=== PATIENT | female | born 1935 | race Caucasian/White ===

== ENCOUNTER 2018-03-02 15:34 | Emergency (ER) | payer MEDICARE, OTHER ==
[2018-03-02] MEDS: KETOROLAC 30 MG INJ IV (16:39)
[2018-03-02 16:56] LABS: ADD MAN DIFF? NO
[2018-03-02 16:59] LABS: WHITE BLOOD COUNT 11.6 10^3/ul (4.8-10.8)
[2018-03-02 16:59] LABS: BASOPHILS % 0.3 % (0.0-2.0); EOSINOPHILS # 0.1 10^3/ul (0.0-0.5); EOSINOPHILS % 0.5 % (0.0-7.0); HEMATOCRIT 39.4 % (37.0-47.0); HEMOGLOBIN 12.8 g/dl (12.0-16.0); LYMPHOCYTES # 2.5 10^3/ul (0.8-2.9); MEAN CORPUSCULAR HEMOGLOBIN 28.6 pg (29.0-33.0); MEAN CORPUSCULAR HGB CONC 32.5 g/dl (32.0-37.0); MEAN CORPUSCULAR VOLUME 87.9 fl (82.0-101.0); MONOCYTE # 0.9 10^3/ul (0.3-0.9); MONOCYTES % 7.8 % (0.0-11.0); PLATELET COUNT 273 10^3/UL (140-415); RED BLOOD COUNT 4.48 10^6/ul (4.20-5.40); RED CELL DISTRIBUTION WIDTH 13.2 % (11.5-14.5)
[2018-03-02 17:18] LABS: ANION GAP 11 (5-13); BLOOD UREA NITROGEN 16 mg/dl (7-20); CALCIUM 8.6 mg/dl (8.4-10.2); CARBON DIOXIDE 25 mmol/L (21-31); CHLORIDE 98 mmol/L (97-110); CREATININE 0.61 mg/dl (0.44-1.00); GLUCOSE 124 mg/dl (70-220); INR 0.92; PARTIAL THROMBOPLASTIN TIME 30.5 Sec (23.0-35.0); POTASSIUM 4.3 mmol/L (3.5-5.1); PROTIME 12.4 Sec (11.9-14.9); SODIUM 134 mmol/L (135-144)
[2018-03-02] MEDS: HYDROCODONE/APAP (5/325) TAB PO (17:39)
[2018-03-02] MEDS: ONDANSETRON (ODT) 4 MG TAB ODT (17:40)
[2018-03-02 18:12] LABS: ERYTHROCYTE SEDIMENTATION RATE 9 mm/Hr (0-30)
== END 2018-03-02 20:04 | disposition home or self-care (01) ==
LOC: E/R 15:34
DX: R51 Headache (principal); I10 Essential (primary) hypertension; E11.9 Type 2 diabetes mellitus without complications; Z79.84 Long term (current) use of oral hypoglycemic drugs
CPT/HCPCS: 36415; 70450; 80048; 85025; 85610; 85651; 85730; 96374; 99285-25

== ENCOUNTER 2018-03-08 15:58 | Observation (INO) | payer MEDICARE, OTHER ==
[2018-03-08 20:34] LABS: ADD MAN DIFF? NO
[2018-03-08 20:37] LABS: WHITE BLOOD COUNT 10.5 10^3/ul (4.8-10.8)
[2018-03-08 20:37] LABS: BASOPHILS % 0.3 % (0.0-2.0); EOSINOPHILS # 0.1 10^3/ul (0.0-0.5); HEMATOCRIT 39.7 % (37.0-47.0); HEMOGLOBIN 13.1 g/dl (12.0-16.0); LYMPHOCYTES # 3.2 10^3/ul (0.8-2.9); MEAN CORPUSCULAR HEMOGLOBIN 28.6 pg (29.0-33.0); MEAN CORPUSCULAR VOLUME 86.7 fl (82.0-101.0); MEAN PLATELET VOLUME 10.2 fl (7.4-10.4); MONOCYTE # 0.7 10^3/ul (0.3-0.9); MONOCYTES % 6.3 % (0.0-11.0); NEUTROPHIL # 6.5 10^3/ul (1.6-7.5); PLATELET COUNT 244 10^3/UL (140-415); RED BLOOD COUNT 4.58 10^6/ul (4.20-5.40); RED CELL DISTRIBUTION WIDTH 13.2 % (11.5-14.5)
[2018-03-08 20:58] LABS: ANION GAP 16 (5-13); BLOOD UREA NITROGEN 11 mg/dl (7-20); CALCIUM 9.2 mg/dl (8.4-10.2); CARBON DIOXIDE 24 mmol/L (21-31); CHLORIDE 97 mmol/L (97-110); CREATININE 0.57 mg/dl (0.44-1.00); GLUCOSE 182 mg/dl (70-220); POTASSIUM 4.4 mmol/L (3.5-5.1); SODIUM 137 mmol/L (135-144)
[2018-03-08 21:09] LABS: TROPONIN-I < 0.012 ng/ml (0.000-0.120)
[2018-03-08] MEDS ORDERED: NACL 0.9% 3 ML SYG IV (22:00)
[2018-03-08] MEDS ORDERED: ACETAMINOPHEN 325 MG TAB PO ×2 (22:00)
[2018-03-08] MEDS ORDERED: NITROGLYCERIN (SL) 0.4 MG TAB SL (22:00)
[2018-03-08] MEDS ORDERED: BISACODYL (EC) 5 MG TAB PO (22:00)
[2018-03-08] MEDS ORDERED: DOCUSATE SODIUM 100 MG CAP PO (22:00)
[2018-03-08] MEDS ORDERED: ONDANSETRON 4 MG INJ IV ×2 (22:00)
[2018-03-08] MEDS: ASPIRIN 325 MG TAB PO (22:02)
[2018-03-09] MEDS: ZOLPIDEM 5 MG TAB PO (00:43)
[2018-03-09 02:49] LABS: CREATINE KINASE 28 IU/L (23-200)
[2018-03-09 03:03] LABS: CK INDEX 2.5; CK-MB 0.71 ng/ml (0.0-2.4); TROPONIN-I < 0.012 ng/ml (0.000-0.120)
[2018-03-09] MEDS ORDERED: GLUCOSE GEL 15 GRAM TUBE PO ×2 (05:30)
[2018-03-09] MEDS ORDERED: GLUCAGON 1 MG INJ IM (05:30)
[2018-03-09] MEDS ORDERED: GLUCOSE GEL 15 GRAM TUBE BUCCAL (05:30)
[2018-03-09] MEDS ORDERED: DEXTROSE 50% 50 ML SYRINGE IV ×2 (05:30)
[2018-03-09] MEDS: INSULIN ASPART [NOVOLOG] 3 ML PEN SC ×3 (07:55→17:29)
[2018-03-09 08:19] LABS: ADD MAN DIFF? NO
[2018-03-09] MEDS: AMLODIPINE 10 MG TAB PO (08:21)
[2018-03-09 08:22] LABS: WHITE BLOOD COUNT 8.9 10^3/ul (4.8-10.8)
[2018-03-09 08:22] LABS: BASOPHILS % 0.2 % (0.0-2.0); EOSINOPHILS # 0.1 10^3/ul (0.0-0.5); EOSINOPHILS % 1.3 % (0.0-7.0); HEMATOCRIT 38.6 % (37.0-47.0); HEMOGLOBIN 12.5 g/dl (12.0-16.0); MEAN CORPUSCULAR HEMOGLOBIN 28.2 pg (29.0-33.0); MEAN CORPUSCULAR HGB CONC 32.4 g/dl (32.0-37.0); MEAN CORPUSCULAR VOLUME 87.1 fl (82.0-101.0); MEAN PLATELET VOLUME 10.2 fl (7.4-10.4); MONOCYTE # 0.7 10^3/ul (0.3-0.9); MONOCYTES % 7.7 % (0.0-11.0); NEUTROPHILS % 56.4 % (39.0-77.0); PLATELET COUNT 227 10^3/UL (140-415); RED BLOOD COUNT 4.43 10^6/ul (4.20-5.40); RED CELL DISTRIBUTION WIDTH 13.2 % (11.5-14.5)
[2018-03-09] MEDS: LOSARTAN 50 MG TAB PO (08:22)
[2018-03-09] MEDS: GABAPENTIN 300 MG CAP PO ×2 (08:22→13:26)
[2018-03-09] MEDS: ENOXAPARIN 40 MG/0.4 ML SYG SC (08:26)
[2018-03-09 08:46] LABS: HEMOGLOBIN A1C 6.3 % (0-5.9)
[2018-03-09 08:52] LABS: ALANINE AMINOTRANSFERASE 47 IU/L (13-69); ALBUMIN 3.9 g/dl (3.3-4.9); ALBUMIN/GLOBULIN RATIO 1.56; ALKALINE PHOSPHATASE 52 IU/L (42-121); ANION GAP 11 (5-13); ASPARTATE AMINO TRANSFERASE 25 IU/L (15-46); BILIRUBIN,INDIRECT 0.2 mg/dl (0-1.1); BILIRUBIN,TOTAL 0.2 mg/dl (0.2-1.3); BLOOD UREA NITROGEN 11 mg/dl (7-20); CALCIUM 9.2 mg/dl (8.4-10.2); CARBON DIOXIDE 25 mmol/L (21-31); CHLORIDE 102 mmol/L (97-110); CHOL/HDL RATIO 3.5 RATIO; CHOLESTEROL 138 mg/dl (100-200); CREATININE 0.54 mg/dl (0.44-1.00); GLUCOSE 53 mg/dl (70-220); HDL CHOLESTEROL 39 mg/dl (33-92); LDL CHOLESTEROL,CALCULATED 83 mg/dl; MAGNESIUM 1.6 mg/dl (1.7-2.5); POTASSIUM 4.6 mmol/L (3.5-5.1); SODIUM 138 mmol/L (135-144); TOTAL PROTEIN 6.4 g/dl (6.1-8.1); TRIGLYCERIDES 80 mg/dl (0-149)
[2018-03-09 08:54] LABS: CREATINE KINASE 23 IU/L (23-200)
[2018-03-09 08:58] LABS: CK INDEX 2.8; CK-MB 0.64 ng/ml (0.0-2.4); TROPONIN-I < 0.012 ng/ml (0.000-0.120)
[2018-03-10] MEDS ORDERED: ACCU-CHEK XX (02:00)
== END 2018-03-09 17:45 | disposition home or self-care (01) ==
LOC: E/R 15:58 → TEL 21:50
DX: R07.89 Other chest pain (principal); I16.0 Hypertensive urgency; I10 Essential (primary) hypertension; E11.9 Type 2 diabetes mellitus without complications; E78.5 Hyperlipidemia, unspecified
CPT/HCPCS: 36415; 71045; 80048; 80053; 80061; 82550; 82553; 82962; 83036; 83735; 84443; 84484; 85025; 87081; 93005; 93306; 99285-25; G0378

== ENCOUNTER → 2018-03-28 | Outpatient (CLI) | payer MEDICARE, OTHER ==
[~2018-03-28] MED LIST: IOHEXOL 100 ML; METOPROLOL 100 MG TAB; METOPROLOL 5 MG INJ; SOD CHLORIDE 0.9% 100 ML
== END | disposition home or self-care (01) ==
LOC: C/S 09:38
DX: I70.0 Atherosclerosis of aorta (principal); R07.9 Chest pain, unspecified
CPT/HCPCS: Q9967

== ENCOUNTER → 2018-04-13 | Outpatient (CLI) | payer MEDICARE, OTHER ==
[~2018-04-13] MED LIST changes: -METOPROLOL 100 MG TAB; -METOPROLOL 5 MG INJ
[2018-04-13] MEDS: METOPROLOL 100 MG TAB (13:40)
== END | disposition home or self-care (01) ==
LOC: C/S 11:29
DX: R07.9 Chest pain, unspecified (principal)
CPT/HCPCS: Q9967